=== PATIENT | female | born 1935 | race Two or more races ===

== ENCOUNTER 2019-09-13 18:51 | Emergency (ER) | payer OTHER ==
[~2019-09-13] VITALS: Ht 160 cm; Wt 65.8 kg
[2019-09-13] MEDS ORDERED: ATORVASTATIN CA20 MG (19:24)
[2019-09-13] MEDS ORDERED: CARVEDILOL ER40 MG (19:24)
[2019-09-13] MEDS ORDERED: PANTOPRAZOLE SO40 M1 (19:25)
== END 2019-09-13 23:00 | disposition home or self-care (01) ==
LOC: ER 18:51
DX: S80.02XA Contusion of left knee, initial encounter (principal); S80.01XA Contusion of right knee, initial encounter; S40.012A Contusion of left shoulder, initial encounter; M13.812 Other specified arthritis, left shoulder; W18.09XA Striking against other object with subsequent fall, initial encounter; Z96.652 Presence of left artificial knee joint; Y93.89 Activity, other specified; Y92.89 Other specified places as the place of occurrence of the external cause; Y99.8 Other external cause status

== ENCOUNTER → 2019-09-19 15:55 | Outpatient (CLI) | payer OTHER ==
[~2019-09-19 15:55] MED LIST: ATORVASTATIN CA20 MG; CARVEDILOL ER40 MG; PANTOPRAZOLE SO40 M1
== END | disposition home or self-care (01) ==
LOC: LAB 15:55
DX: M85.88 Other specified disorders of bone density and structure, other site (principal); E56.1 Deficiency of vitamin K; E88.89 Other specified metabolic disorders; E55.9 Vitamin D deficiency, unspecified; M25.562 Pain in left knee

== ENCOUNTER 2019-10-05 08:43 | Outpatient (CLI) | payer OTHER | END 2019-10-05 09:01 | disposition home or self-care (01) | LOC: RAD 08:43 → LAB 08:43 | DX: E88.89 Other specified metabolic disorders (principal); D64.89 Other specified anemias; D68.8 Other specified coagulation defects; Z22.322 Carrier or suspected carrier of Methicillin resistant Staphylococcus aureus; N39.0 Urinary tract infection, site not specified; Z76.89 Persons encountering health services in other specified circumstances; M25.562 Pain in left knee; M79.651 Pain in right thigh; M79.652 Pain in left thigh; M79.604 Pain in right leg; M79.605 Pain in left leg ==

== ENCOUNTER → 2019-10-09 09:10 | Outpatient (CLI) | payer OTHER | END | disposition home or self-care (01) | LOC: LAB 09:10 → EKG 09:10 | DX: I49.8 Other specified cardiac arrhythmias (principal) ==

== ENCOUNTER 2019-10-10 14:25 | Outpatient (CLI) | payer OTHER | END 2019-10-10 14:38 | disposition home or self-care (01) | LOC: LAB 14:25 | DX: D50.8 Other iron deficiency anemias (principal); D51.3 Other dietary vitamin B12 deficiency anemia; D53.0 Protein deficiency anemia; I10 Essential (primary) hypertension; E78.2 Mixed hyperlipidemia; C50.912 Malignant neoplasm of unspecified site of left female breast; Z90.12 Acquired absence of left breast and nipple ==

== ENCOUNTER 2021-02-12 08:04 | Outpatient (CLI) | payer OTHER ==
[2021-02-12] MEDS ORDERED: LEVO-T25 MCG PO (13:45)
[2021-02-12] MEDS ORDERED: PROCRIT20000 UNIT IJ (13:50)
[2021-02-12] MEDS ORDERED: INTEGRA PLUS C1 EACH PO (13:54)
[2021-02-12] MEDS ORDERED: [UNRECOGNIZED DRUG - OTHER] SL (13:55)
[2021-02-12] MEDS ORDERED: PROTEINEX LIQU236 ML PO (13:55)
[2021-02-12] MEDS ORDERED: ATORVASTATIN CA40 MG PO (13:57)
[2021-02-12] MEDS ORDERED: CARVEDILOL12.5 MG PO (13:57)
== END 2021-02-12 08:10 | disposition home or self-care (01) ==
LOC: LAB 08:04
PROVIDERS: ATTEND Internal Medicine Hematology & Oncology
DX: I10 Essential (primary) hypertension (principal); D64.89 Other specified anemias; E88.89 Other specified metabolic disorders; D68.8 Other specified coagulation defects; N39.0 Urinary tract infection, site not specified; Z86.14 Personal history of Methicillin resistant Staphylococcus aureus infection; M06.4 Inflammatory polyarthropathy; Z76.89 Persons encountering health services in other specified circumstances

== ENCOUNTER 2021-03-04 11:30 | Inpatient (IN) | payer OTHER ==
[~2021-03-04] VITALS: Ht 157.5 cm; Wt 70.3 kg
[~2021-03-04 11:30] MED LIST changes: +ATORVASTATIN CA40 MG PO; +CARVEDILOL12.5 MG PO; +INTEGRA PLUS C1 EACH PO; +LEVO-T25 MCG PO; +PROCRIT20000 UNIT IJ; +PROTEINEX LIQU236 ML PO; +[UNRECOGNIZED DRUG - OTHER] SL
== END 2021-03-19 17:16 | DRG 467 ==
LOC: SURH 03-08 07:00 → O/R 03-08 15:08 → SURG 03-08 15:08 → O/R 03-08 22:16 → SURG 03-08 22:18
PROVIDERS: ADMIT Orthopaedic Surgery; ATTEND Orthopaedic Surgery
PROC: 0SPD0JZ Removal of Synthetic Substitute from Left Knee Joint, Open Approach (ICD-10-PCS; 2021-03-08)
PROC: 0SHD08Z Insertion of Spacer into Left Knee Joint, Open Approach (ICD-10-PCS; 2021-03-08)
PROC: 0SRD0J9 Replacement of Left Knee Joint with Synthetic Substitute, Cemented, Open Approach (ICD-10-PCS; principal; 2021-03-08 07:00)
PROC: 30233N1 Transfusion of Nonautologous Red Blood Cells into Peripheral Vein, Percutaneous Approach (ICD-10-PCS; 2021-03-14)
DX: T84.84XA Pain due to internal orthopedic prosthetic devices, implants and grafts, initial encounter (principal); D62 Acute posthemorrhagic anemia; Z20.822 Contact with and (suspected) exposure to COVID-19

== ENCOUNTER → 2021-03-08 | Emergency (ER) | payer OTHER ==
[~2021-03-08] VITALS: Ht 160 cm; Wt 70.8 kg
== END | disposition home or self-care (01) ==
LOC: ER 09:02
DX: K29.60 Other gastritis without bleeding (principal); R10.13 Epigastric pain; T40.2X5A Adverse effect of other opioids, initial encounter; Y92.89 Other specified places as the place of occurrence of the external cause

== ENCOUNTER 2021-04-24 13:22 | Emergency (ER) | payer OTHER ==
[~2021-04-24] VITALS: Ht 160 cm; Wt 70.8 kg
[2021-04-24] MEDS ORDERED: ULTRAM50 MG PO (14:09)
[2021-04-24] MEDS ORDERED: XARELTO10 MG PO (14:09)
== END 2021-04-24 19:54 | disposition home or self-care (01) ==
LOC: ER 13:22
DX: G89.18 Other acute postprocedural pain (principal); M25.562 Pain in left knee

== ENCOUNTER → 2021-04-26 14:07 | Outpatient (CLI) | payer OTHER ==
[~2021-04-26 14:07] MED LIST changes: +ULTRAM50 MG PO; +XARELTO10 MG PO
== END | disposition home or self-care (01) ==
LOC: LAB 14:07
PROVIDERS: ATTEND Orthopaedic Surgery
DX: T84.54XA Infection and inflammatory reaction due to internal left knee prosthesis, initial encounter (principal)

== ENCOUNTER → 2021-04-28 10:07 | Outpatient (CLI) | payer OTHER | END | disposition home or self-care (01) | LOC: LAB 10:07 | PROVIDERS: ATTEND Orthopaedic Surgery | DX: M06.4 Inflammatory polyarthropathy (principal); D64.9 Anemia, unspecified; N39.0 Urinary tract infection, site not specified; E88.89 Other specified metabolic disorders; D68.9 Coagulation defect, unspecified ==

== ENCOUNTER → 2021-05-18 10:23 | Outpatient (CLI) | payer OTHER | END | disposition home or self-care (01) | LOC: LAB 10:23 | PROVIDERS: ATTEND Orthopaedic Surgery | DX: D64.9 Anemia, unspecified (principal); M06.4 Inflammatory polyarthropathy; E03.9 Hypothyroidism, unspecified; E78.00 Pure hypercholesterolemia, unspecified; Z12.11 Encounter for screening for malignant neoplasm of colon; E55.9 Vitamin D deficiency, unspecified; N18.9 Chronic kidney disease, unspecified; E11.22 Type 2 diabetes mellitus with diabetic chronic kidney disease ==

== ENCOUNTER 2021-05-20 14:58 | Outpatient (CLI) | payer OTHER | END 2021-05-20 15:07 | disposition home or self-care (01) | LOC: LAB 14:58 | PROVIDERS: ATTEND Internal Medicine | DX: E03.8 Other specified hypothyroidism (principal); E11.69 Type 2 diabetes mellitus with other specified complication; E78.00 Pure hypercholesterolemia, unspecified; Z12.11 Encounter for screening for malignant neoplasm of colon; E55.9 Vitamin D deficiency, unspecified; N18.1 Chronic kidney disease, stage 1 ==

== ENCOUNTER → 2021-07-08 09:12 | Outpatient (CLI) | payer OTHER | END | disposition home or self-care (01) | LOC: RAD 09:12 → LAB 09:12 | PROVIDERS: ATTEND Orthopaedic Surgery | DX: I10 Essential (primary) hypertension (principal); R07.89 Other chest pain; M06.4 Inflammatory polyarthropathy; D64.89 Other specified anemias; D68.8 Other specified coagulation defects; E88.89 Other specified metabolic disorders; N39.0 Urinary tract infection, site not specified; Z76.89 Persons encountering health services in other specified circumstances; Z01.810 Encounter for preprocedural cardiovascular examination ==